=== PATIENT | female | born 2000 ===

== ENCOUNTER 2022-02-01 14:40 | Emergency (ER) | payer SELFPAY ==
[2022-02-01] MEDS ORDERED: HYDROmorphone 1 MG/1 ML INJ IV ONE (14:50)
[2022-02-01] MEDS ORDERED: LACTATED RINGERS 1,000 ML IV ONE (14:50)
[2022-02-01] MEDS ORDERED: TETANUS,DIPH,PERTUSS(ACELL) VACCINE 0.5 ML SYRINGE IM ONE (14:50)
[2022-02-01] MEDS ORDERED: SODIUM CHLORIDE 0.9% IRR 500 ML BOTTLE IR ONE (14:51)
--- NOTE | 2022-02-01 14:52 | Emergency Department Report ---
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 Patient is a 21-year-old female who states that she is not , who is right-hand dominant, who pre sents to the ER after accidental amputation of the right distal fingertip, and partial amputation of right middle fingertip, which happened approximately 1/2- hour prior to ER arrival, while at work. The patient indicates this was with a saw. She denies . She denies additional injury. She is not sure as to her tetanus vaccination status. Patient denies additional injuries and complaints ED Review of Systems ROS: Stated complaint: FINGER LACERATION/MISSING TIP Other details as noted in HPI Constitutional: denies: fever Respiratory: denies: cough, shortness of breath Cardiovascular: denies: chest pain Gastrointestinal: denies: abdominal pain Musculoskeletal: joint swelling, arthralgia, myalgia Skin: lesions Psychiatric: anxiety Upper Extremity Exam - Exam General: Patient is awake, alert, and in moderate distress. No facial droop. Tongue midline. Extraocular movements intact bilaterally. Fa cial sensation intact to light touch in V1, V2, V3 distribution bilaterally. 5 and a 5 strength in 4 extremities. Sensation intact to light touch in 4 extremities. 2+ pulses noted in the bilateral upper and lower extremities. There is no palpable cord. negative Homans sign. Muscular compartments are soft. The pelvis is stable. The right distal fingertip is noted to have a complete transection/avulsion at the DIP. It does not appear to involve the nailbed. The right middle finger has a devitalized fingertip, distal to the DIP, with delayed capillary refill. Open fracture is noted. Head and Torso: No HEENT Abnormality, No Neck Tenderness, No Chest/Lungs Ab normality, No Abdominal Tenderness, No Back Tenderness Shoulder Exam: Yes Normal Range of Motion in Shoulder, No Shoulder Tenderness, No Clavicle Tenderness, No Shoulder Deformity, No AC Joint Tenderness Arm Exam: No Arm/Humerus Tenderness, No Arm Deformity Elbow: Yes Normal Range of Motion in Elbow, No Elbow Tenderness, No Elbow Deformity Forearm: No Forearm Tenderness, No Forearm Deformity, No Pain with Pronation, No Pain with Supination Wrist: Yes Normal ROM in Wrist, No Wrist Tenderness, No Wrist Deformity, No Snuffbox Tenderness, No Pain with Axial Thumb Compression Hand: Yes Hand Tenderness, Yes Hand Deformity, Yes Digit Tenderness, Yes Digit(s) Deformity, Yes Tendon Dysfunction, No Normal ROM in Digit(s) CMS Exam: Yes Broken Skin, Yes Normal Distal Pulses, No Normal Capillary Refill, No Normal Distal Sensation ED Course Vital Signs 02/01/22 14:50 Pulse Rate 85 Respiratory 17 Rate Blood Pressure 118/79 [Left] O2 Sat by Pulse 97 Oximetry ED Medical Decision Making - Lab Data Result diagrams: 02/01/22 14:54 02/01/22 14:54 Vital Signs 02/01/22 02/01/22 02/01/22 14:50 14:55 16:00 Temperature 98 F Pulse Rate 85 90 90 Respiratory 17 17 Rate Blood Pressure 122/75 Blood Pressure 118/79 123/73 [Left] O2 Sat by Pulse 97 100 99 Oximetry Lab Results 02/01/22 02/01/22 02/01/22 Range/Units 14:54 14:54 14:54 WBC 9.6 (4.5-11.0) K/mm3 RBC 4.14 (3.65-5.03) M/mm3 Hgb 13.2 (10.1-14.3) gm/dl Hct 37.5 (30.3-42.9) % MCV 91 (79-97) fl MCH 32 (28-32) pg MCHC 35 H (30-34) % RDW 13.2 (13.2-15.2) % Plt Count 156 (140-440) K/mm3 PT 12.1 L (12.2-14.9) Sec. INR 0.82 L (0.87-1.13) APTT 27.5 (24.2-36.6) Sec. Sodium 141 (137-145) mmol/L Potassium 3.7 (3.6-5.0) mmol/L Chloride 103.0 (98-107) mmol/L Carbon Dioxide 25 (22-30) mmol/L Anion Gap 17 mmol/L BUN 12 (7-17) mg/dL Creatinine 0.8 (0.6-1.2) mg/dL Estimated GFR > 60 ml/min BUN/Creatinine Ratio 15 % Glucose 102 H (65-100) mg/dL Calcium 9.0 (8.4-10.2) mg/dL Total Creatine Kinase 256 H (30-135) units/L HCG, Quant (0-4) mIU/mL 02/01/22 Range/Units 14:54 WBC (4.5-11.0) K/mm3 RBC (3.65-5.03) M/mm3 Hgb (10.1-14.3) gm/dl Hct (30.3-42.9) % MCV (79-97) fl MCH (28-32) pg MCHC (30-34) % RDW (13.2-15.2) % Plt Count (140-440) K/mm3 PT (12.2-14.9) Sec. INR (0.87-1.13) APTT (24.2-36.6) Sec. Sodium (137-145) mmol/L Potassium (3.6-5.0) mmol/L Chloride (98-107) mmol/L Carbon Dioxide (22-30) mmol/L Anion Gap mmol/L BUN (7-17) mg/dL Creatinine (0.6-1.2) mg/dL Estimated GFR ml/min BUN/Creatinine Ratio % Glucose (65-100) mg/dL Calcium (8.4-10.2) mg/dL Total Creatine Kinase (30-135) units/L HCG, Quant 375.1 H (0-4) mIU/mL - Radiology Data Radiology results: pending, report reviewed, image reviewed RIGHT HAND 3 VIEW(S) INDICATION / CLINICAL INFORMATION: right hand amputation COMPARISON: None available. FINDINGS: BONES / JOINT(S): There is partial amputation of the distal aspect of the distal phalanx of the second digit. There is fracture through the distal aspect of the middle phalanx of the third digits with corresponding soft tissue defect. No significant arthritis. SOFT TISSUES: Soft tissue defect along the dorsal aspect of the second and third digits. ADDITIONAL FINDINGS: None. Signer Name: Celio Aparicio DO Signed: 02/01/2022 2:34 PM Workstation Name: [id number] - Medical Decision Making Differential diagnosis, include but not limited to: Partial index finger amputation, open fracture, partial amputation right middle finger Assessment and plan: 21-year-old female who is right-hand dominant, presenting with accidental amputation of right distal fingertip, distal to the DIP, and partial amputation of right middle fingertip. She presents approximate 1/2-hour after injury. She states that she is not . Patient requires emergent evaluation by hand surgery which is not available at this facility. Patient medicated aggressively with pain medication, tetanus vaccination antibiotics, nursing team to irrigate fingers, placed in splint after application of appropriate dressing. Advised patient using manager review of the need to transfer to [facility] for definitive services not available at this facility. Discussed the patient's history, physical, and clinical exam findings with their hand surgeon on-call, Dr. Berrios, who has accepted the patient as an ER to ER transfer. Patient has a time sensitive condition, and is therefore transferred to [facility] prior to results of her laboratory studies. Her laboratory studies are reviewed and appreciated, patient found to have positive hCG, with no abdominal pain, tenderness or complaints. Defer to outpatient team to follow-up on positive hCG. Patient has an emergent time sensitive condition at this time, which requires emergent surgical evaluation which cannot be definitively provided at this hospital, as we do not have hand surgery available for consultation or evaluation. Patient medically optimized, hemodynamically stable, and suitable for transfer for definitive services. Critical care attestation.: If time is entered above; I have spent that time in minutes in the direct care of this critically ill patient, excluding procedure time. ED Disposition Clinical Impression: Amputation of right index finger, Amputation of right middle finger, Crush inj ury Open fracture of phalanx of digit of hand Qualifiers: Encounter type: initial encounter Qualified Code(s): S62.609B - Fracture of unspecified phalanx of unspecified finger, initial encounter for open fracture Disposition: 02 [facility]ORT TERM [facility] Is pt being admited?: No Does the pt Need Aspirin: No Condition: Good
[2022-02-01 15:14] LABS: Hematocrit 37.5 % (30.3-42.9); Hemoglobin 13.2 gm/dl (10.1-14.3); Mean Corpuscular HGB Conc 35 % (30-34); Mean Corpuscular Volume 91 fl (79-97); Platelet Count 156 K/mm3 (140-440); Red Blood Count 4.14 M/mm3 (3.65-5.03); Red Cell Distribution Width 13.2 % (13.2-15.2)
[2022-02-01 15:31] LABS: INR 0.82 (0.87-1.13)
[2022-02-01 15:32] LABS: Partial Thromboplastin Time 27.5 Sec. (24.2-36.6)
--- NOTE | 2022-02-01 15:38 | XRay Report ---
RIGHT HAND 3 VIEW(S) INDICATION / CLINICAL INFORMATION: right hand amputation COMPARISON: None available. FINDINGS: BONES / JOINT(S): There is partial amputation of the distal aspect of the distal phalanx of the secon d digit. There is fracture through the distal aspect of the middle phalanx of the third digits with c orresponding soft tissue defect. No significant arthritis. SOFT TISSUES: Soft tissue defect along the dorsal aspect of the second and third digits. ADDITIONAL FINDINGS: None. Signer Name: Celio Aparicio DO Signed: 02/01/2022 3:34 PM Workstation Name: [id number]
[2022-02-01 15:47] LABS: BUN/Creatinine Ratio 15; Blood Urea Nitrogen 12 mg/dL (7-17); Hemolysis Index 10
[2022-02-01 16:02] VITALS: BP 123/73
== END 2022-02-01 16:31 | disposition short-term general hospital (02) ==
LOC: ED 14:40
DX: S68.110A Complete traumatic metacarpophalangeal amputation of right index finger, initial encounter (principal); S68.112A Complete traumatic metacarpophalangeal amputation of right middle finger, initial encounter; X58.XXXA Exposure to other specified factors, initial encounter; Y93.89 Activity, other specified; Y92.89 Other specified places as the place of occurrence of the external cause; Y99.8 Other external cause status
CPT/HCPCS: 29130; 36415; 73130; 80048; 82550; 84702; 85027; 85610; 85730; 90471; 90715; 96361; 96365; 96375; 99285; J0690; J1170; J7120